=== PATIENT | female | born 1930 | race Caucasian/White ===

== ENCOUNTER 2019-01-27 17:58 | Inpatient (IN) | payer OTHER ==
[~2019-01-27] VITALS: Ht 157.5 cm; Wt 63.5 kg
[2019-01-27 18:08] VITALS: BP_SYST 189
[2019-01-27 18:40] LABS: BASOPHILS # (AUTO) 0.1 K/uL (0.0-0.2); BASOPHILS % (AUTO) 0.7 % (0.0-2.0); EOSINOPHILS % (AUTO) 0.1 % (0.0-4.0); HEMATOCRIT 39.6 % (36-48); LYMPHOCYTES # (AUTO) 1.9 K/uL (1.0-5.5); LYMPHOCYTES % (AUTO) 15.4 % (20.5-51.5); MEAN CORPUSCULAR HEMOGLOBIN 28 pg (27-31); MEAN CORPUSCULAR HGB CONC 33 % (32-36); MEAN CORPUSCULAR VOLUME 86 fL (79.0-98.0); MONOCYTES % (AUTO) 7.8 % (1.7-9.3); NEUTROPHILS # (AUTO) 9.6 K/uL (1.8-7.7); PLATELET COUNT (AUTO) 291 K/uL (130-430); RED BLOOD CELL COUNT(AUTO) 4.63 MIL/uL (4.2-6.2); RED CELL DISTRIBUTION WIDTH 13.5 % (9.0-15.0); WHITE BLOOD COUNT (AUTO) 12.6 K/uL (4.8-10.8)
[2019-01-27 18:50] LABS: ANION GAP 10 (5-15); CALCIUM 9.4 mg/dL (8.4-11.0); CHLORIDE 96 mmol/L (98-107); GLUCOSE 129 mg/dL (70-99); SODIUM SERUM 132 mmol/L (136-145); UREA NITROGEN, BLOOD 37 mg/dL (8-21)
[2019-01-27 18:55] LABS: ALANINE AMINOTRANSFERASE 37 U/L (12-78); ALBUMIN 3.6 g/dL (3.4-4.8); ASPARTATE AMINOTRANSFERASE 28 U/L (10-37); TOTAL BILIRUBIN 0.4 mg/dL (0.0-1.0)
[2019-01-27 19:19] LABS: PROTHROMBIN TIME 10.5 SECS (9.5-12.5)
[2019-01-27] MEDS ORDERED: ASPIRIN 81 MG TABLET(ECOTRIN) PO ONE (20:30)
[2019-01-27] MEDS ORDERED: LOSARTAN POTASSIUM 50 MG TABLET (COZAAR) PO ONE (21:00)
[2019-01-27] MEDS ORDERED: LOSA100T23 PO (21:02)
[2019-01-27] MEDS ORDERED: AMLO5TAB4 PO (21:02)
[2019-01-27] MEDS ORDERED: BUME1TAB4 PO (21:02)
[2019-01-27] MEDS ORDERED: NITR0.4T47 SL (21:02)
[2019-01-27] MEDS ORDERED: DICL50TA9 PO (21:02)
[2019-01-27] MEDS ORDERED: CARV12.548 PO (21:02)
[2019-01-27] MEDS ORDERED: LOSARTAN POTASSIUM 50 MG TABLET (COZAAR) ONE (21:30)
[2019-01-27 22:03] VITALS: BP_SYST 157
[2019-01-27] MEDS ORDERED: cloNIDine HCL 0.1 MG TABLET PO PRN (23:00)
[2019-01-27] MEDS ORDERED: DICLOFENAC SODIUM 25 MG TABLET.DR PO PRN (23:00)
[2019-01-27] MEDS ORDERED: BISACODYL 5 MG TABLET.DR (DULCOLAX) PO PRN (23:00)
[2019-01-27] MEDS ORDERED: NITROGLYCERIN 0.4 MG TAB.SUBL SL PRN (23:00)
[2019-01-27] MEDS ORDERED: BISACODYL 10 MG/SUPPOSITORY RC PRN (23:00)
[2019-01-27] MEDS ORDERED: DOCUSATE SODIUM 250 MG CAPSULE PO SCH (23:30)
[2019-01-27] MEDS ORDERED: BISACODYL 5 MG TABLET.DR (DULCOLAX) PO SCH (23:30)
[2019-01-27] MEDS: LR 1,000 ML IV SCH (23:32)
[2019-01-28] VITALS (14 sets, daily range): BP systolic 112–159
[2019-01-28 06:37] LABS: BASOPHILS % (AUTO) 0.2 % (0.0-2.0); EOSINOPHILS # (AUTO) 0.3 K/uL (0.0-0.4); EOSINOPHILS % (AUTO) 1.8 % (0.0-4.0); HEMATOCRIT 40.3 % (36-48); HEMOGLOBIN 13.2 g/dL (12.0-16.0); LYMPHOCYTES # (AUTO) 3.6 K/uL (1.0-5.5); MEAN CORPUSCULAR HEMOGLOBIN 28 pg (27-31); MEAN CORPUSCULAR HGB CONC 33 % (32-36); MEAN CORPUSCULAR VOLUME 85 fL (79.0-98.0); MONOCYTES # (AUTO) 1.3 K/uL (0.0-1.0); NEUTROPHILS # (AUTO) 9.3 K/uL (1.8-7.7); PLATELET COUNT (AUTO) 259 K/uL (130-430); RED BLOOD CELL COUNT(AUTO) 4.74 MIL/uL (4.2-6.2); RED CELL DISTRIBUTION WIDTH 13.6 % (9.0-15.0); WHITE BLOOD COUNT (AUTO) 14.5 K/uL (4.8-10.8)
[2019-01-28 06:52] LABS: ALANINE AMINOTRANSFERASE 32 U/L (12-78); ALBUMIN 3.2 g/dL (3.4-4.8); ANION GAP 5 (5-15); ASPARTATE AMINOTRANSFERASE 23 U/L (10-37); CALCIUM 8.9 mg/dL (8.4-11.0); CHLORIDE 99 mmol/L (98-107); CHOLESTEROL 232 mg/dL (<200); CREATININE 0.82 mg/dL (0.55-1.30); FREE T4 (FREE THYROXINE) 0.7 ng/dL (0.6-1.6); GLUCOSE 83 mg/dL (70-99); HDL CHOLESTEROL 68 mg/dL (>55); LDL CHOLESTEROL 144 mg/dL (<100); POTASSIUM 3.5 mmol/L (3.5-5.1); SODIUM SERUM 137 mmol/L (136-145); TOTAL BILIRUBIN 0.4 mg/dL (0.0-1.0); TRIGLYCERIDES 76 mg/dL (30-150); UREA NITROGEN, BLOOD 26 mg/dL (8-21)
[2019-01-28 07:43] LABS: BILIRUBIN,URINE NEGATIVE (NEGATIVE); BLOOD, URINE NEGATIVE (NEGATIVE); CLARITY/URINE CLEAR (CLEAR); COLOR,URINE YELLOW (YELLOW); GLUCOSE,URINE NEGATIVE (NEGATIVE); KETONES,URINE NEGATIVE (NEGATIVE); LEUKOCYTE ESTERASE ,URINE NEGATIVE (NEGATIVE); NITRITE, URINE NEGATIVE (NEGATIVE); PROTEIN URINE NEGATIVE (NEGATIVE); UROBILINOGEN,URINE 0.2 (0.2-1.0)
[2019-01-28] MEDS: ENOXAPARIN SODIUM 30 MG/0.3 ML SYRINGE SUBCUT SCH (09:23)
[2019-01-28] MEDS: DOCUSATE SODIUM 250 MG CAPSULE PO SCH ×2 (09:25→20:44)
[2019-01-28] MEDS: ASPIRIN 81 MG TABLET(ECOTRIN) PO SCH (09:25)
[2019-01-28] MEDS: busPIRone HCL 5 MG TABLET PO SCH ×2 (09:25→20:43)
[2019-01-28] MEDS: LOSARTAN POTASSIUM 50 MG TABLET (COZAAR) PO SCH (09:26)
[2019-01-28] MEDS: amLODIPine BESYLATE 5 MG TABLET PO SCH (09:26)
[2019-01-28] MEDS ORDERED: NACL 0.9% 1,000 ML IV ONE (14:15)
[2019-01-28] MEDS ORDERED: methylPREDNISolone SOD SUCC/PF 62.5 MG/ML VIAL IVP ONE (14:15)
[2019-01-28] MEDS ORDERED: methylPREDNISolone SOD SUCC/PF 62.5 MG/ML VIAL ONE ×2 (14:26)
[2019-01-28] MEDS ORDERED: DIPHENHYDRAMINE INJ 50 MG/ML VIAL IVP ONE (15:00)
[2019-01-28] MEDS ORDERED: FAMOTIDINE PF 20 MG/2 ML VIAL IVP ONE (16:00)
[2019-01-28] MEDS: LR 1,000 ML IV SCH (16:20)
[2019-01-28] MEDS: LEVOFLOXACIN 500 MG/D5W 100 ML IV SCH ×2 (18:30→20:50)
[2019-01-28] MEDS: LevALBUTEROL HCL 1.25 MG/0.5 ML *CONC.* VIAL.NEB (XOPENEX CONC.) INH SCH (19:38)
[2019-01-28] MEDS: IPRATROPIUM BROM 0.5 MG/2.5 ML VIAL.NEB (ATROVENT) INH SCH (19:39)
[2019-01-28] MEDS: methylPREDNISolone SOD SUCC 40 MG/ML VIAL IVP SCH (20:44)
[2019-01-28] MEDS: metroNIDAZOLE 250 mg/NS 50 ML IV SCH (22:58)
[2019-01-29] VITALS (18 sets, daily range): BP systolic 126–156
[2019-01-29] MEDS: IPRATROPIUM BROM 0.5 MG/2.5 ML VIAL.NEB (ATROVENT) INH SCH ×4 (01:20→20:05)
[2019-01-29] MEDS: LevALBUTEROL HCL 1.25 MG/0.5 ML *CONC.* VIAL.NEB (XOPENEX CONC.) INH SCH ×4 (01:20→20:05)
[2019-01-29 05:34] LABS: HEMATOCRIT 41.7 % (36-48); HEMOGLOBIN 13.7 g/dL (12.0-16.0); LYMPHOCYTES # (AUTO) 1.1 K/uL (1.0-5.5); LYMPHOCYTES % (AUTO) 8.2 % (20.5-51.5); MEAN CORPUSCULAR HEMOGLOBIN 28 pg (27-31); MEAN CORPUSCULAR HGB CONC 33 % (32-36); MEAN CORPUSCULAR VOLUME 86 fL (79.0-98.0); MONOCYTES # (AUTO) 0.2 K/uL (0.0-1.0); MONOCYTES % (AUTO) 1.7 % (1.7-9.3); NEUTROPHILS # (AUTO) 11.7 K/uL (1.8-7.7); NEUTROPHILS % (AUTO) 90.1 % (40.0-70.0); PLATELET COUNT (AUTO) 263 K/uL (130-430); RED BLOOD CELL COUNT(AUTO) 4.87 MIL/uL (4.2-6.2); RED CELL DISTRIBUTION WIDTH 13.8 % (9.0-15.0); WHITE BLOOD COUNT (AUTO) 12.9 K/uL (4.8-10.8)
[2019-01-29] MEDS: metroNIDAZOLE 250 mg/NS 50 ML IV SCH ×3 (05:48→21:10)
[2019-01-29 06:04] LABS: ANION GAP 9 (5-15); CALCIUM 8.5 mg/dL (8.4-11.0); CHLORIDE 101 mmol/L (98-107); CREATININE 0.93 mg/dL (0.55-1.30); GLUCOSE 139 mg/dL (70-99); POTASSIUM 4.1 mmol/L (3.5-5.1); SODIUM SERUM 139 mmol/L (136-145); UREA NITROGEN, BLOOD 21 mg/dL (8-21)
[2019-01-29] MEDS: LR 1,000 ML IV SCH (08:18)
[2019-01-29] MEDS: DOCUSATE SODIUM 250 MG CAPSULE PO SCH ×2 (08:24→20:55)
[2019-01-29] MEDS: busPIRone HCL 5 MG TABLET PO SCH ×2 (08:24→20:55)
[2019-01-29] MEDS: ASPIRIN 81 MG TABLET(ECOTRIN) PO SCH (08:24)
[2019-01-29] MEDS: LOSARTAN POTASSIUM 50 MG TABLET (COZAAR) PO SCH (08:24)
[2019-01-29] MEDS: ENOXAPARIN SODIUM 30 MG/0.3 ML SYRINGE SUBCUT SCH (08:25)
[2019-01-29] MEDS: amLODIPine BESYLATE 5 MG TABLET PO SCH (08:25)
[2019-01-29] MEDS: methylPREDNISolone SOD SUCC 40 MG/ML VIAL IVP SCH ×2 (08:28→20:55)
[2019-01-29] MEDS: CARVEDILOL 12.5 MG TABLET (COREG) PO SCH ×2 (09:53→09:54)
[2019-01-29] MEDS ORDERED: LEVOFLOXACIN 250 MG/D5W 50 ML IV SCH (18:30)
[2019-01-30 00:51] VITALS: BP_SYST 149
[2019-01-30] MEDS: LevALBUTEROL HCL 1.25 MG/0.5 ML *CONC.* VIAL.NEB (XOPENEX CONC.) INH SCH ×3 (01:00→13:29)
[2019-01-30] MEDS: IPRATROPIUM BROM 0.5 MG/2.5 ML VIAL.NEB (ATROVENT) INH SCH ×3 (01:00→13:29)
[2019-01-30 06:14] LABS: ANION GAP 8 (5-15); CALCIUM 8.7 mg/dL (8.4-11.0); CHLORIDE 104 mmol/L (98-107); CREATININE 0.89 mg/dL (0.55-1.30); GLUCOSE 123 mg/dL (70-99); POTASSIUM 3.9 mmol/L (3.5-5.1); SODIUM SERUM 139 mmol/L (136-145); UREA NITROGEN, BLOOD 26 mg/dL (8-21)
[2019-01-30] MEDS: metroNIDAZOLE 250 mg/NS 50 ML IV SCH ×2 (06:32→14:05)
[2019-01-30 06:42] LABS: BASOPHILS % (AUTO) 0.1 % (0.0-2.0); HEMATOCRIT 39.6 % (36-48); HEMOGLOBIN 12.7 g/dL (12.0-16.0); LYMPHOCYTES # (AUTO) 1.3 K/uL (1.0-5.5); LYMPHOCYTES % (AUTO) 6.8 % (20.5-51.5); MEAN CORPUSCULAR HEMOGLOBIN 27 pg (27-31); MEAN CORPUSCULAR HGB CONC 32 % (32-36); MEAN CORPUSCULAR VOLUME 85 fL (79.0-98.0); MONOCYTES # (AUTO) 0.7 K/uL (0.0-1.0); MONOCYTES % (AUTO) 3.4 % (1.7-9.3); NEUTROPHILS # (AUTO) 17.5 K/uL (1.8-7.7); NEUTROPHILS % (AUTO) 89.7 % (40.0-70.0); PLATELET COUNT (AUTO) 263 K/uL (130-430); RED BLOOD CELL COUNT(AUTO) 4.66 MIL/uL (4.2-6.2); RED CELL DISTRIBUTION WIDTH 13.5 % (9.0-15.0); WHITE BLOOD COUNT (AUTO) 19.5 K/uL (4.8-10.8)
[2019-01-30 07:52] VITALS: BP_SYST 145
[2019-01-30] MEDS: methylPREDNISolone SOD SUCC 40 MG/ML VIAL IVP SCH (08:35)
[2019-01-30] MEDS: DOCUSATE SODIUM 250 MG CAPSULE PO SCH (08:36)
[2019-01-30] MEDS: ASPIRIN 81 MG TABLET(ECOTRIN) PO SCH (08:36)
[2019-01-30] MEDS: busPIRone HCL 5 MG TABLET PO SCH (08:36)
[2019-01-30] MEDS: LOSARTAN POTASSIUM 50 MG TABLET (COZAAR) PO SCH (08:37)
[2019-01-30] MEDS: amLODIPine BESYLATE 5 MG TABLET PO SCH (08:37)
[2019-01-30] MEDS: ENOXAPARIN SODIUM 30 MG/0.3 ML SYRINGE SUBCUT SCH (08:40)
[2019-01-30] MEDS: CARVEDILOL 12.5 MG TABLET (COREG) PO SCH (08:48)
[2019-01-30 13:32] VITALS: BP_SYST 126
[2019-01-30 16:28] VITALS: BP_SYST 134
[2019-01-30] MEDS ORDERED: CETI10CA PO (18:16)
[2019-01-30] MEDS ORDERED: HYDR10SY11 PO (18:16)
[2019-01-30 18:19] VITALS: BP_SYST 148
== END 2019-01-30 18:52 | disposition home health service (06) | DRG 194 ==
LOC: SED 17:58 → STU 19:24 → SIC 01-28 14:26 → STU 01-29 17:58 → SMU 01-30 15:33
PROVIDERS: ADMIT Internal Medicine; ATTEND Internal Medicine
DX: J12.9 Viral pneumonia, unspecified (principal); R65.10 Systemic inflammatory response syndrome (SIRS) of non-infectious origin without acute organ dysfunction; I10 Essential (primary) hypertension; M19.90 Unspecified osteoarthritis, unspecified site; E66.9 Obesity, unspecified; F41.9 Anxiety disorder, unspecified; T36.1X5A Adverse effect of cephalosporins and other beta-lactam antibiotics, initial encounter; Z86.73 Personal history of transient ischemic attack (TIA), and cerebral infarction without residual deficits; Z88.0 Allergy status to penicillin; Z90.710 Acquired absence of both cervix and uterus; Z95.0 Presence of cardiac pacemaker; Z68.25 Body mass index [BMI] 25.0-25.9, adult; Y92.89 Other specified places as the place of occurrence of the external cause
CPT/HCPCS: 36415; 36600; 70450-TC; 71045; 71270-TC; 80048; 80053; 80061; 81003; 82803-TC; 82962; 83880; 84439; 84484; 85025; 85379; 85610-TC; 85730-TC; 86710; 87081; 93005; 93306; 93880; 94640; 94760; 99285; G0378; J0696; J1030; J1200; J1650; J1956; J2930; J3490; J7040; J7060; J7120; J7612

== ENCOUNTER 2019-02-11 16:50 | Inpatient (IN) | payer OTHER ==
[~2019-02-11] VITALS: Ht 160 cm; Wt 68.0 kg
[~2019-02-11 16:50] MED LIST: AMLO5TAB4 PO; CARV12.548 PO; CETI10CA PO; DICL50TA9 PO; LOSA100T23 PO; NITR0.4T47 SL
[2019-02-11 16:55] VITALS: BP_SYST 149
[2019-02-11 17:21] LABS: BILIRUBIN,URINE NEGATIVE (NEGATIVE); BLOOD, URINE NEGATIVE (NEGATIVE); CLARITY/URINE CLEAR (CLEAR); COLOR,URINE YELLOW (YELLOW); GLUCOSE,URINE NEGATIVE (NEGATIVE); KETONES,URINE NEGATIVE (NEGATIVE); LEUKOCYTE ESTERASE ,URINE NEGATIVE (NEGATIVE); NITRITE, URINE NEGATIVE (NEGATIVE); PROTEIN URINE NEGATIVE (NEGATIVE); UROBILINOGEN,URINE 0.2 (0.2-1.0)
[2019-02-11] MEDS ORDERED: NS 500 ML IV ONE (17:45)
[2019-02-11 18:05] LABS: BASOPHILS % (AUTO) 0.3 % (0.0-2.0); EOSINOPHILS % (AUTO) 0.1 % (0.0-4.0); HEMOGLOBIN 12.6 g/dL (12.0-16.0); LYMPHOCYTES # (AUTO) 0.7 K/uL (1.0-5.5); LYMPHOCYTES % (AUTO) 9.1 % (20.5-51.5); MEAN CORPUSCULAR HEMOGLOBIN 28 pg (27-31); MEAN CORPUSCULAR HGB CONC 33 % (32-36); MEAN CORPUSCULAR VOLUME 85 fL (79.0-98.0); MONOCYTES # (AUTO) 0.1 K/uL (0.0-1.0); MONOCYTES % (AUTO) 0.9 % (1.7-9.3); NEUTROPHILS # (AUTO) 6.5 K/uL (1.8-7.7); NEUTROPHILS % (AUTO) 89.6 % (40.0-70.0); PLATELET COUNT (AUTO) 256 K/uL (130-430); RED CELL DISTRIBUTION WIDTH 13.7 % (9.0-15.0); WHITE BLOOD COUNT (AUTO) 7.2 K/uL (4.8-10.8)
[2019-02-11 18:15] LABS: ANION GAP 8 (5-15); CALCIUM 9.2 mg/dL (8.4-11.0); CHLORIDE 99 mmol/L (98-107); GLUCOSE 207 mg/dL (70-99); POTASSIUM 3.6 mmol/L (3.5-5.1); SODIUM SERUM 132 mmol/L (136-145); UREA NITROGEN, BLOOD 18 mg/dL (8-21)
[2019-02-11 18:20] LABS: ALANINE AMINOTRANSFERASE 33 U/L (12-78); ALBUMIN 3.2 g/dL (3.4-4.8); ASPARTATE AMINOTRANSFERASE 19 U/L (10-37); INR 1.1 (0.8-1.2); TOTAL BILIRUBIN 0.4 mg/dL (0.0-1.0)
[2019-02-11] MEDS ORDERED: LEVOFLOXACIN 500 MG/D5W 100 ML IV ONE (19:15)
[2019-02-11] MEDS ORDERED: NACL 0.9% 1,500 ML IV ONE (19:15)
[2019-02-11 20:05] VITALS: BP_SYST 136
[2019-02-11 20:30] VITALS: BP_SYST 136
[2019-02-11] MEDS ORDERED: NITROGLYCERIN 0.4 MG TAB.SUBL SL PRN (20:30)
[2019-02-11] MEDS ORDERED: ACETAMINOPHEN 650 MG SUPP.RECT RC PRN (20:30)
[2019-02-11] MEDS ORDERED: LevALBUTEROL HCL 1.25 MG/0.5 ML *CONC.* VIAL.NEB (XOPENEX CONC.) INH PRN (20:30)
[2019-02-11] MEDS: LevALBUTEROL HCL 1.25 MG/0.5 ML *CONC.* VIAL.NEB (XOPENEX CONC.) INH SCH (22:58)
[2019-02-11 23:10] VITALS: BP_SYST 160
[2019-02-12] MEDS: LevALBUTEROL HCL 1.25 MG/0.5 ML *CONC.* VIAL.NEB (XOPENEX CONC.) INH SCH ×3 (07:00→23:00)
[2019-02-12 08:10] VITALS: BP_SYST 148
[2019-02-12] MEDS: amLODIPine BESYLATE 5 MG TABLET PO SCH (08:18)
[2019-02-12] MEDS: ENOXAPARIN SODIUM 30 MG/0.3 ML SYRINGE SUBCUT SCH (08:19)
[2019-02-12] MEDS: CARVEDILOL 12.5 MG TABLET (COREG) PO SCH (08:19)
[2019-02-12] MEDS: busPIRone HCL 5 MG TABLET PO SCH ×2 (09:09→20:26)
[2019-02-12 12:30] VITALS: BP_SYST 143
[2019-02-12 16:38] VITALS: BP_SYST 148
[2019-02-12] MEDS ORDERED: LEVOFLOXACIN 500 MG/D5W 100 ML IV SCH (19:00)
[2019-02-12 20:00] VITALS: BP_SYST 125
[2019-02-13 00:42] VITALS: BP_SYST 128
[2019-02-13] MEDS: LevALBUTEROL HCL 1.25 MG/0.5 ML *CONC.* VIAL.NEB (XOPENEX CONC.) INH SCH ×2 (07:06→16:56)
[2019-02-13] MEDS: busPIRone HCL 5 MG TABLET PO SCH (07:25)
[2019-02-13] MEDS: CARVEDILOL 12.5 MG TABLET (COREG) PO SCH (07:26)
[2019-02-13] MEDS: amLODIPine BESYLATE 5 MG TABLET PO SCH (07:26)
[2019-02-13] MEDS: ENOXAPARIN SODIUM 30 MG/0.3 ML SYRINGE SUBCUT SCH (07:27)
[2019-02-13 08:27] VITALS: BP_SYST 149
[2019-02-13 11:27] VITALS: BP_SYST 124
[2019-02-13 15:35] VITALS: BP_SYST 118
[2019-02-13] MEDS ORDERED: busPIRone HCL 5 MG TABLET PO SCH (17:45)
[2019-02-13 17:50] VITALS: BP_SYST 118
[2019-02-13] MEDS ORDERED: BUSP5TAB3 PO (17:52)
== END 2019-02-13 18:10 | disposition home or self-care (01) | DRG 206 ==
LOC: SED 16:50 → STU 19:17 → SMU 02-12 14:30
PROVIDERS: ADMIT Family Medicine; ATTEND Family Medicine
DX: M94.0 Chondrocostal junction syndrome [Tietze] (principal); N39.0 Urinary tract infection, site not specified; F41.9 Anxiety disorder, unspecified; I10 Essential (primary) hypertension; M19.90 Unspecified osteoarthritis, unspecified site; N31.9 Neuromuscular dysfunction of bladder, unspecified; I25.10 Atherosclerotic heart disease of native coronary artery without angina pectoris; Z95.0 Presence of cardiac pacemaker; Z79.899 Other long term (current) drug therapy; Z88.0 Allergy status to penicillin; Z88.1 Allergy status to other antibiotic agents
CPT/HCPCS: 36415; 36600; 71045; 80053; 81003; 82803-TC; 83605; 84484; 85025; 85379; 85610-TC; 85730-TC; 87040-TC; 87081; 87086; 93005; 94640; 94760; 96361; 96365; 97110-GP; 97116-GP; 97530-GP; 99285; G0378; J1650; J1956; J7040; J7612